=== PATIENT | male | born 1960 | race American Indian/Alaskan Native ===

== ENCOUNTER 2020-02-19 20:53 | Observation (INO) | payer MEDICARE ==
[2020-02-19] MEDS ORDERED: ASPIRIN 325 MG TAB PO ONE (21:12)
[2020-02-19] MEDS ORDERED: IPRATROPIUM/ALBUTEROL SULFATE 3 ML AMPUL.NEB IH ONE (21:27)
[2020-02-19] MEDS ORDERED: dexAMETHasone 20 MG/5 ML VIAL IV ONE (21:27)
--- NOTE | 2020-02-19 21:52 | XRay Report ---
CHEST 1 VIEW INDICATION / CLINICAL INFORMATION: Chest Pain. FINDINGS: SUPPORT DEVICES: None. HEART / MEDIASTINUM: No significant abnormality. LUNGS / PLEURA: Mild scattered ill-defined densities within the mid and lower lungs bilaterally. Signer Name: Yves Ann MD Signed: 02/19/2020 9:48 PM Workstation Name: [id number]
[2020-02-19 21:54] LABS: Basophils # (Auto) 0.1 K/mm3 (0.0-0.1); Basophils % (Auto) 1.7 % (0.0-1.8); Eosinophils # (Auto) 0.4 K/mm3 (0.0-0.4); Eosinophils % (Auto) 4.6 % (0.0-4.3); Lymphocytes # (Auto) 3.1 K/mm3 (1.2-5.4); Lymphocytes % (Auto) 34.5 % (13.4-35.0); Mean Corpuscular HGB Conc 33 % (32-34); Mean Corpuscular Volume 98 fl (84-94); Monocytes # (Auto) 0.8 K/mm3 (0.0-0.8); Monocytes % (Auto) 8.6 % (0.0-7.3); Platelet Count 177 K/mm3 (140-440); Red Blood Count 4.88 M/mm3 (3.65-5.03); Red Cell Distribution Width 13.7 % (13.2-15.2)
[2020-02-19] MEDS ORDERED: ACETAMINOPHEN 500 MG TAB PO ONE (22:00)
--- NOTE | 2020-02-19 22:04 | Emergency Department Report ---
ED Shortness of Breath HPI - General Chief Complaint: Dyspnea/Respdistress Stated Complaint: DIFF BREATHING Time Seen by Provider: 02/19/20 21:47 Source: patient Mode of arrival: Ambulatory Limitations: No Limitations - History of Present Illness Initial Comments: Patient is 59 years old male, obese and stating that he did not have any past medical history. Patient presented to the ER complaining of shortness of breath and cough for the last 2 days. Patient found to be febrile with a temperature of 100 and oxygen saturation of 89% on room air improved to 96% on 2 L. Patient stated that he recently moved to a new motel and he think that there is a lot of mold that may be contributing to his symptoms. Patient denied any chest pain, abdominal pain, nausea or vomiting. MD Complaint: shortness of breath, cough -: days(s) (2) - Related Data Home Medications Medication Instructions Recorded Confirmed Last Taken Furosemide [Lasix TAB] 40 mg PO QDAY 02/20/20 02/20/20 Unknown Gabapentin [Neurontin] 600 mg PO Q8H 02/20/20 02/20/20 Unknown Ibuprofen [Motrin] 800 mg PO Q8HR PRN 02/20/20 02/20/20 Unknown Allergies Allergy/AdvReac Type Severity Reaction Status Date / Time No Known Allergies Allergy Verified 02/19/20 22:17 ED Review of Systems ROS: Stated complaint: DIFF BREATHING Other details as noted in HPI Comment: All other systems reviewed and negative Constitutional: chills, fever Respiratory: cough, orthopnea, shortness of breath, SOB with exertion, SOB at rest, wheezing Cardiovascular: denies: chest pain Gastrointestinal: denies: abdominal pain, nausea, vomiting Musculoskeletal: denies: back pain ED Past Medical Hx - Past Medical History Previous Medical History?: Yes Additional medical history: Morbid Obesity - Surgical History Past Surgical History?: Yes - Social History Smoking Status: Current Every Day Smoker Substance Use Type: None - Medications Home Medications: Home Medications Medication Instructions Recorded Confirmed Last Taken Type Furosemide [Lasix TAB] 40 mg PO QDAY 02/20/20 02/20/20 Unknown History Gabapentin [Neurontin] 600 mg PO Q8H 02/20/20 02/20/20 Unknown History Ibuprofen [Motrin] 800 mg PO Q8HR PRN 02/20/20 02/20/20 Unknown History ED Physical Exam - General Limitations: No Limitations General appearance: alert, in no apparent distress - Head Head exam: Present: atraumatic, normocephalic, normal inspection - Eye Eye exam: Present: normal appearance - ENT ENT exam: Present: normal exam, normal orophraynx, mucous membranes moist, TM's normal bilaterally - Neck Neck exam: Present: normal inspection, full ROM. Absent: tenderness, meningismus, lymphadenopathy, thyromegaly - Respiratory Respiratory exam: Present: wheezes, rales, rhonchi, decreased breath sounds, prolonged expiratory. Absent: respiratory distress, accessory muscle use - Cardiovascular Cardiovascular Exam: Present: regular rate, normal rhythm, normal heart sounds - GI/Abdominal GI/Abdominal exam: Present: soft, normal bowel sounds. Absent: distended, tenderness, guarding, rebound, rigid, organomegaly, mass, bruit, pulsatile mass, hernia - Extremities Exam Extremities exam: Present: normal inspection, full ROM, normal capillary refill. Absent: pedal edema, calf tenderness - Back Exam Back exam: Present: normal inspection, full ROM. Absent: CVA tenderness (R), CVA tenderness (L), muscle spasm, paraspinal tenderness - Neurological Exam Neurological exam: Present: alert, oriented X3, CN II-XII intact, normal gait, reflexes normal. Absent: motor sensory deficit - Psychiatric Psychiatric exam: Present: normal mood - Skin Skin exam: Present: warm, intact, normal color ED Course Vital Signs 02/19/20 02/19/20 02/19/20 21:05 21:15 23:00 Temperature 100.0 F H 99.9 F H Pulse Rate 93 H 90 81 Pulse Rate [ Bilateral Throughout] Respiratory 22 20 Rate Respiratory Rate [Bilateral Throughout] Blood Pressure 156/64 Blood Pressure 133/83 [Left] O2 Sat by Pulse 89 96 95 Oximetry 02/20/20 02/20/20 02/20/20 00:18 00:28 00:40 Temperature Pulse Rate Pulse Rate [ 90 Bilateral Throughout] Respiratory 20 20 Rate Respiratory 20 Rate [Bilateral Throughout] Blood Pressure Blood Pressure [Left] O2 Sat by Pulse 93 97 Oximetry ED Medical Decision Making - Lab Data Result diagrams: 02/20/20 05:19 02/20/20 05:19 - Radiology Data Radiology results: report reviewed - Medical Decision Making Patient is 59 years old male, obese and stating that he did not have any past medical history. Patient presented to the ER complaining of shortness of breath and cough for the last 2 days. Patient found to be febrile with a temperature of 100 and oxygen saturation of 89% on room air improved to 96% on 2 L. Patient stated that he recently moved to a new motel and he think that there is a lot of mold that may be contributing to his symptoms. Patient denied any chest pain, abdominal pain, nausea or vomiting. Chest x-ray show bilateral infiltrate concerning for atypical pneumonia. COVID- 19 test has been ordered. Blood culture ordered. Patient received Rocephin 1 g and Zithromax 500 mg IV. Patient oxygen saturation improved with O2 nasal cannula at 2 L/min. I discussed the patient with , he agreed to admit the patient to medical service for further management Critical Care Time: Yes Critical care time in (mins) excluding proc time.: 30 Critical care attestation.: If time is entered above; I have spent that time in minutes in the direct care of this critically ill patient, excluding procedure time. ED Disposition Clinical Impression: Acute respiratory failure with hypoxemia, Bilateral pneumonia, Suspected COVID- 19 virus infection Disposition: OP ADMIT IP TO THIS HOSP Is pt being admited?: Yes Condition: Stable
[2020-02-19 22:14] LABS: BUN/Creatinine Ratio 13; Blood Urea Nitrogen 13 mg/dL (9-20); Calcium 8.9 mg/dL (8.4-10.2); Hemolysis Index 16
[2020-02-19 22:18] LABS: Alanine Aminotransferase 15 units/L (7-56); Albumin 3.8 g/dL (3.9-5)
[2020-02-19 22:19] LABS: Bilirubin,Direct < 0.2 mg/dL (0-0.2)
[2020-02-19 22:55] LABS: C-Reactive Protein 2.8 mg/dL (0.00-1.30)
[2020-02-19] MEDS ORDERED: cefTRIAXone/NS 1 GM/50 ML 1 GM/50 ML BAG IV ONE (23:08)
[2020-02-19] MEDS ORDERED: AZITHROMYCIN 500 MG in SODIUM CHLORIDE 0.9% 250ML 250 ML IV ONE (23:08)
--- NOTE | 2020-02-19 23:54 | History and Physical Report ---
History of Present Illness Date of examination: 02/19/20 Date of admission: 02/19/2020 Chief complaint: Cough Shortness of breath Fever History of present illness: 59-year-old male with no significant past medical history presented to the emergency room today complaining of cough and shortness of breath which has been ongoing for the past 2 days. Patient indicates that he has been staying in a motel where she feels there has been a lot of mold which may be contributing to his symptoms. He denies any recent travel and no sick contacts, he denies any contact with anyone with COVID-19. Upon arrival in the emergency room he was found to be febrile with a temperature of about 100F, hypoxic with O2 saturation of about 89% which later improved to about 96% on 2 L of oxygen by nasal cannula. He denies any headache or dizziness, no nausea or vomiting, denies any diaphoresis, denies any chills, denies any abdominal pain, no hematuria or dysuria. Work-up in the emergency room today reveals bilateral infiltrate on the chest x- ray which is concerning for atypical pneumonia. Patient was started on empiric IV antibiotics and IV steroid. He has been placed on isolation to rule out COVID-19. Past History Past Medical History: No medical history Past Surgical History: No surgical history Social history: smoking (Current daily smoker) Family history: no significant family history Medications and Allergies Allergies Allergy/AdvReac Type Severity Reaction Status Date / Time No Known Allergies Allergy Verified 02/19/20 22:17 Home Medications Medication Instructions Recorded Confirmed Last Taken Type Furosemide [Lasix TAB] 40 mg PO QDAY 02/20/20 02/20/20 Unknown History Gabapentin [Neurontin] 600 mg PO Q8H 02/20/20 02/20/20 Unknown History Ibuprofen [Motrin] 800 mg PO Q8HR PRN 02/20/20 02/20/20 Unknown History Active Meds: Active Medications Azithromycin 500 mg/ Sodium (Chloride) 250 mls @ 250 mls/hr IV ONCE ONE; P rotocol Stop: 02/20/20 00:07 Review of Systems Constitutional: fever, no chills Ears, nose, mouth and throat: no nasal congestion, no sore throat Cardiovascular: no chest pain, no palpitations Respiratory: cough, shortness of breath Gastrointestinal: no abdominal pain, no nausea, no vomiting, no diarrhea Genitourinary Male: no dysuria, no hematuria, no flank pain Musculoskeletal: no neck pain, no low back pain Integumentary: no rash, no pruritis Neurological: no headaches, no confusion Psychiatric: no anxiety, no depression Exam - Constitutional Vitals: Temp Pulse Resp BP Pulse Ox 100.0 F H 90 22 156/64 96 02/19/20 21:05 02/19/20 21:15 02/19/20 21:05 02/19/20 21:05 02/19/20 21:15 General appearance: Present: no acute distress, well-nourished, obese - EENT Eyes: Present: PERRL, EOM intact ENT: hearing intact, clear oral mucosa, dentition normal - Neck Neck: Present: supple, normal ROM - Respiratory Respiratory effort: normal Respiratory: bilateral: diminished, wheezing (Few scattered wheezes) - Cardiovascular Rhythm: regular Heart Sounds: Present: S1 & S2. Absent: gallop, systolic murmur, diastolic murmur, rub - Extremities Extremities: no ischemia, pulses intact, pulses symmetrical, Full ROM Extremity abnormal: edema (Trace bilateral ankle edema) Peripheral Pulses: within normal limits - Abdominal General gastrointestinal: Present: soft, non-tender, non-distended, normal bowel sounds. Absent: mass - Integumentary Integumentary: Present: clear, warm, dry - Musculoskeletal Musculoskeletal: strength equal bilaterally - Psychiatric Psychiatric: appropriate mood/affect, intact judgment & insight, memory intact, cooperative - Neurologic Neurologic: CNII-XII intact, no focal deficits, moves all extremities HEART Score - HEART Score Troponin: Troponin T < 0.010 ng/mL (0.00-0.029) 02/19/20 21:22 Results - Labs CBC & Chem 7: 02/19/20 21:22 02/19/20 22:19 Labs: Abnormal lab results 02/19/20 02/19/20 02/19/20 Range/Units 21:22 21:30 22:19 Hgb 16.0 H (11.8-15.2) gm/dl Hct 48.0 H (35.5-45.6) % MCV 98 H (84-94) fl MCH 33 H (28-32) pg [place] % (Auto) 8.6 H (0.0-7.3) % Eos % (Auto) 4.6 H (0.0-4.3) % D-Dimer 513.82 H (0-234) ng/mlDDU Glucose (75-100) mg/dL C-Reactive Protein (0.00-1.30) mg/dL Albumin 3.8 L (3.9-5) g/dL 02/19/20 Range/Units 22:19 Hgb (11.8-15.2) gm/dl Hct (35.5-45.6) % MCV (84-94) fl MCH (28-32) pg [place] % (Auto) (0.0-7.3) % Eos % (Auto) (0.0-4.3) % D-Dimer (0-234) ng/mlDDU Glucose 102 H (75-100) mg/dL C-Reactive Protein 2.80 H (0.00-1.30) mg/dL Albumin (3.9-5) g/dL Assessment and Plan - Patient Problems (1) Acute respiratory failure with hypoxemia Current Visit: Yes Status: Acute Plan to address problem: Possibly secondary to the underlying pneumonia. Patient has been placed on oxygen by nasal cannula. We will keep O2 saturation greater or equal to 94%. (2) Bilateral pneumonia Current Visit: Yes Status: Acute Plan to address problem: We will continue on empiric IV antibiotics. We will await culture results. (3) Suspected COVID-19 virus infection Current Visit: Yes Status: Acute Plan to address problem: Patient placed on isolation precautions. He has been placed on IV steroid. We will await COVID-19 testing. Consult has been placed to infectious disease for evaluation and recommendation. (4) DVT prophylaxis Current Visit: Yes Status: Acute Plan to address problem: Patient placed on subcutaneous Lovenox. (5) Full code status Current Visit: Yes Status: Acute
[2020-02-19] MEDS ORDERED: MAGNESIUM HYDROXIDE (MOM) ORAL LIQD UDC PO PRN (23:55)
[2020-02-19] MEDS ORDERED: ACETAMINOPHEN 325 MG TAB PO PRN (23:55)
[2020-02-19] MEDS ORDERED: MORPHINE 2 MG/1 ML INJ IV PRN (23:55)
[2020-02-19] MEDS ORDERED: ONDANSETRON 4 MG/2 ML INJ IV PRN (23:55)
[2020-02-20] MEDS ORDERED: ASPIRIN 325 MG TAB ONE (00:09)
[2020-02-20] MEDS ORDERED: cefTRIAXone/NS 1 GM/50 ML 1 GM/50 ML BAG IV ONE (00:09)
[2020-02-20] MEDS ORDERED: ACETAMINOPHEN 500 MG TAB ONE (00:10)
[2020-02-20] MEDS ORDERED: dexAMETHasone 20 MG/5 ML VIAL ONE (00:10)
[2020-02-20 06:19] LABS: Basophils % (Auto) 0.4 % (0.0-1.8); Eosinophils % (Auto) 0.1 % (0.0-4.3); Hematocrit 45.2 % (35.5-45.6); INR 0.97 (0.87-1.13); Lymphocytes # (Auto) 1.4 K/mm3 (1.2-5.4); Mean Corpuscular HGB Conc 33 % (32-34); Mean Corpuscular Volume 98 fl (84-94); Monocytes # (Auto) 0.1 K/mm3 (0.0-0.8); Monocytes % (Auto) 1.5 % (0.0-7.3); Platelet Count 169 K/mm3 (140-440); Red Cell Distribution Width 13.6 % (13.2-15.2)
[2020-02-20 06:25] LABS: BUN/Creatinine Ratio 14; Blood Urea Nitrogen 13 mg/dL (9-20); Calcium 8.8 mg/dL (8.4-10.2); Hemolysis Index 1
[2020-02-20] MEDS ORDERED: dexAMETHasone 4 MG/ML VIAL IV SCH (10:00)
[2020-02-20 17:00] VITALS: BP 142/84
--- NOTE | 2020-02-20 18:45 | Discharge Summary ---
Providers - Providers Date of Admission: 02/19/20 23:50 Date of discharge: 02/20/20 Attending physician: DEANNA COTTON 02/19/20 23:55 Consult to Physician [CONS] Routine Comment: Consulting Provider: JENNY MOYER Physician Instructions: Reason For Exam: ATYPICAL PNEUMONIA, R/O COVID 19 Primary care physician: MAGNETO ELECTRICIAN Hospitalization Condition: Stable Hospital course: 59-year-old male with no significant past medical history presented to the emergency room today complaining of cough and shortness of breath which has been ongoing for the past 2 days. Patient indicates that he has been staying in a motel where she feels there has been a lot of mold which may be contributing to his symptoms. He denies any recent travel and no sick contacts, he denies any contact with anyone with COVID-19. Upon arrival in the emergency room he was found to be febrile with a temperature of about 100F, hypoxic with O2 saturation of about 89% which later improved to about 96% on 2 L of oxygen by nasal cannula. He denies any headache or dizziness, no nausea or vomiting, denies any diaphoresis, denies any chills, denies any abdominal pain, no hematuria or dysuria. Work-up in the emergency room today reveals bilateral infiltrate on the chest x- ray which is concerning for atypical pneumonia. Patient was started on empiric IV antibiotics and IV steroid. He has been placed on isolation to rule out COVID-19. Patient symptomatically better today but wanted to leave AGAINST MEDICAL ADVICE. Patient signed AMA papers. Patient was told about the dangers of not taking complete treatment (1) Acute respiratory failure with hypoxemia Current Visit: Yes Status: Acute Plan to address problem: Improving (2) Bilateral pneumonia Current Visit: Yes Status: Acute Plan to address problem: We will continue on empiric IV antibiotics. We will await culture results. Improving (3) Suspected COVID-19 virus infection Current Visit: Yes Status: Acute Plan to address problem: Patient placed on isolation precautions. He has been placed on IV steroid. We will await COVID-19 testing. Consult has been placed to infectious disease for evaluation and recommendation. (4) DVT prophylaxis Current Visit: Yes Status: Acute Plan to address problem: Patient placed on subcutaneous Lovenox. (5) Full code status Current Visit: Yes Status: Acute Disposition: DC-01 TO HOME OR SELFCARE - Discharge Diagnoses (1) Acute respiratory failure with hypoxemia Status: Acute (2) Bilateral pneumonia Status: Acute (3) Suspected COVID-19 virus infection Status: Acute Comment: Patient is covered negative (4) DVT prophylaxis Status: Acute Core Measure Documentation - Palliative Care Palliative Care/ Comfort Measures: Not Applicable - Core Measures Any of the following diagnoses?: none Exam - Constitutional Vitals: Temp Pulse Resp BP Pulse Ox 98.8 F 88 20 142/84 91 02/20/20 16:41 02/20/20 16:41 02/20/20 16:41 02/20/20 16:41 02/20/20 16:41 General appearance: Present: no acute distress, well-nourished - EENT Eyes: Present: PERRL ENT: hearing intact, clear oral mucosa - Neck Neck: Present: supple, normal ROM - Respiratory Respiratory effort: normal Respiratory: bilateral: CTA, rhonchi - Cardiovascular Heart rate: 78 Rhythm: regular Heart Sounds: Present: S1 & S2. Absent: rub, click - Extremities Extremities: no ischemia, pulses intact, pulses symmetrical, No edema Peripheral Pulses: within normal limits - Abdominal General gastrointestinal: Present: soft, non-tender, non-distended, normal bowel sounds Male genitourinary: Present: normal - Rectal Rectal Exam: deferred - Integumentary Integumentary: Present: clear, warm, dry - Musculoskeletal Musculoskeletal: gait normal, strength equal bilaterally - Psychiatric Psychiatric: appropriate mood/affect, intact judgment & insight - Neurologic Neurologic: CNII-XII intact, moves all extremities - Allied Health Allied health notes reviewed: nursing, case management Plan Activity: no restrictions Diet: regular Follow up with: BOOM HAY MD [Primary Care Provider] - 3-5 Days LIZ WOOD MD [Staff Physician] - 7 Days
[2020-02-20] MEDS ORDERED: AZITHROMYCIN 500 MG in SODIUM CHLORIDE 0.9% 250ML 250 ML IV SCH (22:00)
[2020-02-20] MEDS ORDERED: ENOXAPARIN 40 MG/0.4 ML INJ SUB-Q SCH (22:00)
[2020-02-20] MEDS ORDERED: cefTRIAXone/NS 2 GM/100 ML 2 GM/100 ML BAG IV SCH (22:00)
== END 2020-02-20 18:18 | disposition left against medical advice (07) ==
LOC: ED 20:53 → 3A 23:50
PROVIDERS: ADMIT Internal Medicine Geriatric Medicine; ATTEND Internal Medicine
DX: J96.01 Acute respiratory failure with hypoxia (principal); Z20.828 Contact with and (suspected) exposure to other viral communicable diseases; J18.9 Pneumonia, unspecified organism; F17.210 Nicotine dependence, cigarettes, uncomplicated; E66.01 Morbid (severe) obesity due to excess calories; Z68.42 Body mass index [BMI] 45.0-49.9, adult; Z79.899 Other long term (current) drug therapy
CPT/HCPCS: 36415; 71045; 80048; 80076; 82728; 82947; 83615; 83880; 84145; 84484; 85025; 85379; 85610; 86140; 87040; 93005; 94640; 94760; 96365; 96367; 96375; 96376; 99291; 99406; G0378; J0456; J0696; J1100; J7050; U0003

== ENCOUNTER 2020-03-16 00:03 | Observation (INO) | payer MEDICARE ==
--- NOTE | 2020-03-16 01:12 | Emergency Department Report ---
ED Shortness of Breath HPI - General Chief Complaint: Dyspnea/Respdistress Stated Complaint: SHORTNESS OF BREATH Time Seen by Provider: 03/16/20 00:50 Source: patient Mode of arrival: Ambulatory Limitations: Physical Limitation - History of Present Illness Initial Comments: Patient is a 59-year-old male that presents emergency room with complaints of sh ortness of breath, bilateral lower extremity swelling, difficulty breathing, fluid overload. Patient stated Cipro started 3 days ago. Patient dates symptoms are worsening. Patient states that he has history of congestive heart failure. Patient states that he is not taking his Lasix daily. Patient states he is eating high salt diet. Patient denies lower extremity pain. Patient denies chest pain. Patient states his shortness of breath better with rest and worse with exertion. Patient has dyspnea on exertion. Patient denies fever and chills. Patient denies cough. Patient denies recent travel. Patient denies recent international travel. Patient denies exposure to the novel coronavirus. Patient denies sick contacts. Patient denies fever and chills. Patient denies cough. Patient denies diarrhea. Patient denies coming in contact with anybody with symptoms of the novel coronavirus. MD Complaint: shortness of breath -: Sudden Pain Scale: 0 Consistency: constant Improves With: rest, upright position Worsens With: lying flat, exertion Known History Of: congestive heart failure, other (Missed meds) Associated Symptoms: orhopnia - Related Data Home Medications Medication Instructions Recorded Confirmed Last Taken Furosemide [Lasix TAB] 40 mg PO QDAY 02/20/20 02/20/20 Unknown Gabapentin [Neurontin] 600 mg PO Q8H 02/20/20 02/20/20 Unknown Ibuprofen [Motrin] 800 mg PO Q8HR PRN 02/20/20 02/20/20 Unknown Allergies Allergy/AdvReac Type Severity Reaction Status Date / Time No Known Allergies Allergy Verified 02/19/20 22:17 ED Review of Systems ROS: Stated complaint: SHORTNESS OF BREATH Other details as noted in HPI Constitutional: denies: chills, fever Eyes: denies: eye pain, eye discharge, vision change ENT: denies: ear pain, throat pain Respiratory: shortness of breath, SOB with exertion, SOB at rest. denies: cough, wheezing Cardiovascular: dyspnea on exertion, edema. denies: chest pain, palpitations Endocrine: no symptoms reported Gastrointestinal: denies: abdominal pain, nausea, diarrhea Genitourinary: denies: urgency, dysuria Musculoskeletal: denies: back pain, joint swelling, arthralgia Skin: denies: rash, lesions Neurological: denies: headache, weakness, paresthesias Psychiatric: denies: anxiety, depression Hematological/Lymphatic: denies: easy bleeding, easy bruising ED Past Medical Hx - Past Medical History Previous Medical History?: Yes Hx Congestive Heart Failure: Yes Additional medical history: Morbid Obesity, Psoriasis - Surgical History Past Surgical History?: No - Family History Family history: no significant - Social History Smoking Status: Current Every Day Smoker Substance Use Type: Alcohol - Medications Home Medications: Home Medications Medication Instructions Recorded Confirmed Last Taken Type Furosemide [Lasix TAB] 40 mg PO QDAY 02/20/20 02/20/20 Unknown History Gabapentin [Neurontin] 600 mg PO Q8H 02/20/20 02/20/20 Unknown History Ibuprofen [Motrin] 800 mg PO Q8HR PRN 02/20/20 02/20/20 Unknown History ED Physical Exam - General Limitations: Physical Limitation General appearance: alert, in no apparent distress, obese - Head Head exam: Present: atraumatic, normocephalic - Eye Eye exam: Present: normal appearance, PERRL Pupils: Present: normal accommodation - ENT ENT exam: Present: mucous membranes moist - Neck Neck exam: Present: normal inspection - Respiratory Respiratory exam: Present: decreased breath sounds. Absent: respiratory distre ss - Cardiovascular Cardiovascular Exam: Present: regular rate, normal rhythm. Absent: systolic murmur, diastolic murmur, rubs, gallop - GI/Abdominal GI/Abdominal exam: Present: soft, normal bowel sounds - Rectal Rectal exam: Present: deferred - Extremities Exam Extremities exam: Present: normal inspection, pedal edema. Absent: full ROM, te nderness, calf tenderness - Back Exam Back exam: Present: normal inspection - Neurological Exam Neurological exam: Present: alert, oriented X3 - Psychiatric Psychiatric exam: Present: normal affect, normal mood - Skin Skin exam: Present: warm, dry, intact, normal color. Absent: rash ED Course Vital Signs 03/16/20 03/16/20 03/16/20 00:14 02:40 03:45 Temperature 98.3 F Pulse Rate 80 82 87 Respiratory 22 19 16 Rate Blood Pressure 124/76 Blood Pressure 148/107 144/114 [Left] O2 Sat by Pulse 98 97 97 Oximetry - Reevaluation(s) Reevaluation #1: I discussed all results with patient. I discussed plan of care with patient. Patient agrees with plan of care and admission. Patient to be admitted to the hospitalist service. 03/16/20 03:30 - Consultations Consultation #1: Hospitalist consulted for admission. Hospitalist to admit patient. 03/16/20 03:30 ED Medical Decision Making - Lab Data Result diagrams: 03/16/20 02:29 03/16/20 02:29 - EKG Data -: EKG Interpreted by Me EKG shows normal: sinus rhythm, axis, intervals, QRS complexes, ST-T waves Rate: normal - Radiology Data Radiology results: report reviewed CHEST 1 VIEW INDICATION / CLINICAL INFORMATION: Dyspnea. FINDINGS: SUPPORT DEVICES: None. HEART / MEDIASTINUM: No significant abnormality. LUNGS / PLEURA: Low lung volumes bilaterally with ill-defined density within the right lower lung could represent pneumonitis or atelectasis. - Medical Decision Making Patient is a 59-year-old male who presents emergency room with complaints of shortness of breath and fluid overload and lower extremity swelling. Patient is given Lasix after initial evaluation due to swelling. Patient has history of CHF. Patient has a history of patient. Patient had a chest x-ray which shows pneumonia. Patient had an elevated white count. Patient's troponin was negative. Patient BNP is negative. Patient's chemistry is negative. Patient's EKG no acute findings and no STEMI. Patient admitted to the hospitalist service for further evaluation treatment and rule out ACS and into the telemetry. - Differential Diagnosis CHF, volume overload, edema, pneumonia, ACS, S OB Critical Care Time: Yes Critical care time in (mins) excluding proc time.: 35 Critical care attestation.: If time is entered above; I have spent that time in minutes in the direct care of this critically ill patient, excluding procedure time. Critical Care Time: 35 minutes ED Disposition Clinical Impression: SOB (shortness of breath), Lower extremity edema, Noncompliance Pneumonia Qualifiers: Pneumonia type: due to unspecified organism Laterality: right Lung location: unspecified part of lung Qualified Code(s): J18.9 - Pneumonia, unspecified organism CHF (congestive heart failure) Qualifiers: Heart failure type: unspecified Heart failure chronicity: chronic Qualified Code(s): I50.9 - Heart failure, unspecified Disposition: 09 OP ADMIT IP TO THIS HOSP Is pt being admited?: Yes Does the pt Need Aspirin: No Condition: Critical Instructions: Bacterial Pneumonia (ED) Time of Disposition: 03:28
[2020-03-16] MEDS ORDERED: FUROSEMIDE 40 MG/4 ML INJ ONE (01:24)
[2020-03-16] MEDS ORDERED: FUROSEMIDE 40 MG/4 ML INJ IV ONE (01:24)
--- NOTE | 2020-03-16 02:39 | XRay Report ---
CHEST 1 VIEW INDICATION / CLINICAL INFORMATION: Dyspnea. FINDINGS: SUPPORT DEVICES: None. HEART / MEDIASTINUM: No significant abnormality. LUNGS / PLEURA: Low lung volumes bilaterally with ill-defined density within the right lower lung cou ld represent pneumonitis or atelectasis. Signer Name: Yves Ann MD Signed: 03/16/2020 2:34 AM Workstation Name: [id number]
[2020-03-16 02:52] LABS: Hematocrit 48.4 % (35.5-45.6); Hemoglobin 16.6 gm/dl (11.8-15.2); Mean Corpuscular HGB Conc 34 % (32-34); Mean Corpuscular Volume 96 fl (84-94); Platelet Count 206 K/mm3 (140-440); Red Blood Count 5.05 M/mm3 (3.65-5.03); Red Cell Distribution Width 13.5 % (13.2-15.2)
[2020-03-16 03:09] LABS: Creatine Kinase MB 2.3 ng/mL (0.0-4.0)
[2020-03-16 03:11] LABS: Alanine Aminotransferase 13 units/L (7-56); BUN/Creatinine Ratio 11; Blood Urea Nitrogen 9 mg/dL (9-20); Calcium 9.4 mg/dL (8.4-10.2); Hemolysis Index 6
[2020-03-16] MEDS ORDERED: CEFEPIME/NS 2 GM/100 ML 2 GM/100 ML BAG IV ONE (03:19)
[2020-03-16] MEDS ORDERED: ACETAMINOPHEN 325 MG TAB PO PRN (04:16)
[2020-03-16] MEDS ORDERED: ONDANSETRON 4 MG/2 ML INJ IV PRN (04:16)
--- NOTE | 2020-03-16 04:31 | History and Physical Report ---
History of Present Illness Date of examination: 03/16/20 Chief complaint: Productive cough and shortness of breath for 2 weeks History of present illness: Patient is a 59-year-old male who presents to the emergency room with complaints of shortness of breath, bilateral lower extremity swelling . Patient stated Cipro started 3 days ago. Patient dates symptoms are worsening. Patient states that he has history of congestive heart failure. He complains of productive cough with mucoid sputum. He denies any exertional chest pain fever or chills. Routine examination of the chest x-ray showed right lower lobe infiltrate and patient is being admitted for suspected pneumonia Patient denies recent travel. Patient denies exposure to the novel coronavirus. Past History Past Medical History: heart failure (Our plan), hypertension (Culture but is a patient on antibiotic), other (Psoriasis) Past Surgical History: Other (Shoulder surgery, neck surgery and hiatal hernia repair ) Social history: smoking Family history: no significant family history Medications and Allergies Allergies Allergy/AdvReac Type Severity Reaction Status Date / Time No Known Allergies Allergy Verified 02/19/20 22:17 Home Medications Medication Instructions Recorded Confirmed Last Taken Type Furosemide [Lasix TAB] 40 mg PO QDAY 02/20/20 02/20/20 Unknown History Gabapentin [Neurontin] 600 mg PO Q8H 02/20/20 02/20/20 Unknown History Ibuprofen [Motrin] 800 mg PO Q8HR PRN 02/20/20 02/20/20 Unknown History Active Meds: Active Medications Acetaminophen (Tylenol) 650 mg PO Q4H PRN PRN Reason: Pain MILD(1-3)/Fever >100.5/SMYTH Furosemide (Lasix) 20 mg IV DAILY [facility] Heparin Sodium (Porcine) (Heparin) 5,000 unit SUB-Q Q8HR [facility] Ceftriaxone Sodium (Rocephin/Ns 2 Gm/100 Ml) 2 gm in 100 mls @ 200 mls/hr IV Q24HR [facility]; Protocol Azithromycin 500 mg/ Sodium (Chloride) 250 mls @ 250 mls/hr IV Q24HR [facility]; Protocol Ondansetron HCl (Zofran) 4 mg IV Q8H PRN PRN Reason: Nausea And Vomiting Sodium Chloride (Sodium Chloride Flush Syringe 10 Ml) 10 ml IV BID [facility] Sodium Chloride (Sodium Chloride Flush Syringe 10 Ml) 10 ml IV PRN PRN PRN Reason: LINE FLUSH Review of Systems Constitutional: no weight loss, no weight gain, no weakness Ears, nose, mouth and throat: no ear pain, no hoarseness, no sore throat, no headache, no vertigo Cardiovascular: edema, shortness of breath, high blood pressure, no chest pain, no orthopnea, no palpitations Respiratory: cough with sputum, shortness of breath Gastrointestinal: no abdominal pain, no nausea, no vomiting, no melena Rectal: no pain Integumentary: rash Neurological: no head injury, no seizures, no vertigo Psychiatric: no anxiety, no depression Exam - Constitutional Vitals: Temp Pulse Resp BP Pulse Ox 98.3 F 87 16 144/114 97 03/16/20 00:14 03/16/20 03:45 03/16/20 03:45 03/16/20 03:45 03/16/20 03:45 General appearance: Present: no acute distress, well-nourished, obese - EENT Eyes: Present: PERRL, EOM intact ENT: hearing intact, clear oral mucosa - Neck Neck: Present: supple, normal ROM. Absent: masses or JVD - Respiratory Respiratory effort: normal Respiratory: bilateral: diminished, rhonchi - Cardiovascular Rhythm: regular Heart Sounds: Present: S1 & S2 - Extremities Extremity abnormal: edema (2-3+ bilateral lower extremity edema) - Abdominal General gastrointestinal: Present: soft, non-tender. Absent: hepatomegaly, splenomegaly Male genitourinary: Present: deferred - Rectal Rectal Exam: deferred - Integumentary Integumentary: Present: rash (Chronic appearing lesions over the arms and back and legs) - Musculoskeletal Musculoskeletal: strength equal bilaterally - Psychiatric Psychiatric: appropriate mood/affect - Neurologic Neurologic: no focal deficits HEART Score - HEART Score Troponin: Troponin T < 0.010 ng/mL (0.00-0.029) 03/16/20 02:29 Results - Labs CBC & Chem 7: 03/16/20 02:29 03/16/20 02:29 Labs: Abnormal lab results 03/16/20 03/16/20 Range/Units 02:29 02:29 RBC 5.05 H (3.65-5.03) M/mm3 Hgb 16.6 H (11.8-15.2) gm/dl Hct 48.4 H (35.5-45.6) % MCV 96 H (84-94) fl MCH 33 H (28-32) pg Total Creatine Kinase 181 H (55-170) units/L Assessment and Plan - Patient Problems (1) Pneumonia Current Visit: Yes Status: Acute Qualifiers: Pneumonia type: due to unspecified organism Laterality: right Lung loca tion: lower lobe of lung Qualified Code(s): J18.9 - Pneumonia, unspecified organism Plan to address problem: Based on the findings of the chest x-ray which showed suspected right lower lobe infiltrate and patient's history of productive cough for the past 2 weeks, I will treat the patient for pneumonia Pneumonia pathway was initiated Started on IV ceftriaxone and azithromycin We will also order a COVID-19 test Oxygen via nasal cannula as needed (2) Lower extremity edema Current Visit: Yes Status: Chronic Plan to address problem: Patient denies any shortness of breath P BNP is normal and chest x-ray showed no signs of CHF Most likely patient has chronic leg edema We will start the patient on IV Lasix once daily (3) Noncompliance Current Visit: Yes Status: Chronic Plan to address problem: Patient states that she is not been taking any medications due to lack of insurance
[2020-03-16 04:55] LABS: Basophils % (Manual) 0 % (0.0-1.8); Platelet Estimate Consistent w Auto; Total Cells Counted 100
[2020-03-16] MEDS ORDERED: HEPARIN 5,000 UNIT/1 ML VIAL ONE (06:18)
[2020-03-16] MEDS: HEPARIN 5,000 UNIT/1 ML VIAL SUB-Q SCH ×3 (06:21→22:24)
[2020-03-16] MEDS ORDERED: AZITHROMYCIN 500 MG in SODIUM CHLORIDE 0.9% 250ML 250 ML IV SCH (10:00)
[2020-03-16] MEDS: cefTRIAXone/NS 2 GM/100 ML 2 GM/100 ML BAG IV SCH (10:50)
[2020-03-16] MEDS: FUROSEMIDE 20 MG/2 ML INJ IV SCH (10:50)
[2020-03-16] MEDS: AZITHROMYCIN 250 MG TAB PO SCH (10:52)
--- NOTE | 2020-03-16 12:30 | Event Note ---
Date: 03/16/[address] Sign [address] Gee. He has multiple complaints with bilateral leg swelling. Started on lasix IV daily. Will need echocardiogram. Patient will be discharged once echo result is out. Will need to follow up with vehicle and equipment cleaner in the office.
[2020-03-17 09:23] LABS: BUN/Creatinine Ratio 11; Blood Urea Nitrogen 9 mg/dL (9-20); Calcium 8.7 mg/dL (8.4-10.2); Hemolysis Index 22
[2020-03-17] MEDS: FUROSEMIDE 20 MG/2 ML INJ IV SCH (11:54)
[2020-03-17] MEDS: AZITHROMYCIN 250 MG TAB PO SCH (11:54)
[2020-03-17] MEDS: cefTRIAXone/NS 2 GM/100 ML 2 GM/100 ML BAG IV SCH (11:54)
[2020-03-17 12:34] VITALS: BP 121/81
--- NOTE | 2020-03-17 14:30 | Discharge Summary ---
Providers - Providers Date of Admission: 03/16/20 04:16 Date of discharge: 03/17/20 Attending physician: COLLEEN MONCADA [facility] Hospital[facility] Condition: Critical Hospital course: 59-year-old male who presents to the emergency room with complaints of shortness of breath, bilateral lower extremity swelling. Patient dates symptoms are worsening. Patient states that he has history of congestive heart failure. He complains of productive cough with mucoid sputum. He denies any exertional chest pain fever or chills. Routine examination of the chest x-ray showed right lower lobe infiltrate and patient is being admitted for suspected pneumonia Patient denies recent travel. Patient denies exposure to the novel cor onavirus. Patient was placed on observation and started on IV diuretics. Echocardiogram was ordered. COVID -19 test was negative Patient has been effectively diuresed. Echocardiogram shows diastolic dysfunction. Patient will need to follow-up with her fiction and nonfiction writer prose in the office. Patient mentioned exposure to asbestos and mold. Will have patient follow-up with pulmonology in the office for pulmonary function tests. I will discharge patient on Lasix 40 mg daily and an additional 40 mg to be used as needed for weight gain more than 2 pounds. He is currently stable to be discharged today Disposition: DC- TO HOME OR SELFCARE Time spent for discharge: 35 - Discharge Diagnoses (1) CHF (congestive heart failure) Status: Acute Qualifiers: Heart failure type: diastolic Heart failure chronicity: acute on chronic Qualified Code(s): I50.33 - Acute on chronic diastolic (congestive) heart failure (2) Pneumonia Status: Acute Qualifiers: Pneumonia type: due to unspecified organism Laterality: right Lung location: lower lobe of lung Qualified Code(s): J18.9 - Pneumonia, unspecified organism (3) SOB (shortness of breath) Status: Acute (4) Lower extremity edema Status: Chronic Core Measure Documentation - Palliative Care Palliative Care/ Comfort Measures: Not Applicable - Core Measures Any of the following diagnoses?: none Exam - Constitutional Vitals: Temp Pulse Resp BP Pulse Ox 97.4 F L 79 17 121/81 92 03/17/20 12:32 03/17/20 12:32 03/17/20 12:32 03/17/20 12:32 03/17/20 12:32 General appearance: Present: no acute distress, well-nourished - EENT Eyes: Present: PERRL ENT: hearing intact, clear oral mucosa - Neck Neck: Present: supple, normal ROM - Respiratory Respiratory effort: normal Respiratory: bilateral: CTA - Cardiovascular Heart Sounds: Present: S1 & S2. Absent: rub, click - Extremities Extremities: pulses symmetrical Extremity abnormal: edema Peripheral Pulses: within normal limits - Abdominal General gastrointestinal: Present: soft, non-tender, non-distended, normal bowel sounds Male genitourinary: Present: normal - Integumentary Integumentary: Present: clear, warm, dry - Musculoskeletal Musculoskeletal: gait normal, strength equal bilaterally - Psychiatric Psychiatric: appropriate mood/affect, intact judgment & insight - Neurologic Neurologic: CNII-XII intact, moves all extremities Plan Diet: low salt Additional Instructions: Continue 40 mg Lasix daily. Use additional 40 mg for weight gain more than 3 pounds. Follow up with [facility] as scheduled Follow up with: AMARILYS NORMAN MD [Primary Care Provider] - 7 Days Prescriptions: Furosemide [Lasix TAB] 40 mg PO QDAY #50 Azithromycin [Zithromax TAB] 250 mg PO QDAY #3 tablet
== END 2020-03-17 15:04 | disposition home or self-care (01) ==
LOC: ED 00:03 → 3A 04:16
PROVIDERS: ADMIT Internal Medicine; ATTEND Internal Medicine
DX: J18.9 Pneumonia, unspecified organism (principal); Z20.828 Contact with and (suspected) exposure to other viral communicable diseases; R60.0 Localized edema; I11.0 Hypertensive heart disease with heart failure; I50.9 Heart failure, unspecified; L40.9 Psoriasis, unspecified; F17.200 Nicotine dependence, unspecified, uncomplicated; E66.01 Morbid (severe) obesity due to excess calories; Z68.42 Body mass index [BMI] 45.0-49.9, adult; Z91.14 Patient's other noncompliance with medication regimen
CPT/HCPCS: 36415; 71045; 80048; 80053; 82140; 82550; 82553; 83880; 84484; 85025; 86140; 93005; 93306; 96365; 96366; 96367; 96372; 96375; 96376; 99291; G0378; J0692; J0696; J1644; J1940; U0003; 85007